=== PATIENT | male | born 1995 | race Caucasian/White ===

== ENCOUNTER 2024-08-16 11:11 | Emergency (ER) | payer BC ==
[2024-08-16 12:39] LABS: #Basophils Less than 0.03 10x3/uL (0.0-0.2); %Basophils 0.2 % (0.0-1.0); %Eosinophils 5.9 % (0.0-10.0); %Lymphocytes 28.4 % (21.0-51.0); %Monocytes 6.8 % (0.0-10.0); %Neutrophils 58.5 % (42.0-75.0); Hematocrit 42.8 % (42.0-52.0); Hemoglobin 15.8 g/dL (14.0-18.0); Mean Corpuscular HGB CONC 36.9 g/dL (32.0-36.0); Mean Corpuscular Hemoglobin 31.7 pg (27.0-31.0); Mean Corpuscular Volume 85.8 fL (78.0-98.0); Mean Platelet Volume 9.7 fL (7.4-10.4); Platelet Count 207 10x3/uL (130-400); RBC Distribution Width 11.5 % (11.5-14.5); Red Blood Cell (RBC) Count 4.99 mill/uL (4.70-6.10)
[2024-08-16 12:58] LABS: ALT (SGPT) 73 U/L (8-55); AST (SGOT) 44 U/L (5-34); Albumin 4.4 g/dL (3.5-5.0); Alkaline Phosphatase 66 U/L (40-110); Anion Gap 16 mmol/L (10-20); BUN (Urea Nitrogen) 10 mg/dL (8.9-20.6); Bilirubin, Total 1.1 mg/dL (0.2-1.2); Calc. Creatinine Clearance 0 mL/min (70-130); Calcium 9.8 mg/dL (7.8-10.44); Carbon Dioxide 26 mmol/L (22-29); Chloride 103 mmol/L (98-107); Estimated GFR 122; Globulin 3.4 g/dL (2.4-3.5); Glucose 105 mg/dL (70-105); Magnesium 2.1 mg/dL (1.6-2.6); Potassium 3.6 mmol/L (3.5-5.1); Protein, Total 7.8 g/dL (6.0-8.3); Sodium 141 mmol/L (136-145)
[2024-08-16 13:13] LABS: Troponin I Less than 0.010 ng/mL (< 0.028)
== END 2024-08-16 14:05 | disposition home or self-care (01) ==
LOC: ERS 11:11
DX: R55 Syncope and collapse (principal)
CPT/HCPCS: 71045; 80053; 83735; 83880; 84443; 84484; 85025; 93005; 96360